=== PATIENT | male | born 1945 | race Caucasian/White ===

== ENCOUNTER 2017-12-14 08:37 | Inpatient (IN) ==
--- NOTE | 2017-12-13 21:41 | Discharge Summary ---
<Natacha Daly E - Last Filed: 12/13/17 21:39> Date of Encounter: 12/13/17 - Discharge Diagnosis (1) Status post total hip replacement, right Priority: Primary Status: Acute (2) Arthritis of right hip Priority: Primary Status: Chronic (3) HTN (hypertension) Priority: Secondary Status: Chronic Qualifiers: Hypertension type: unspecified Qualified Code(s): I10 - Essential (primary ) hypertension (4) HLD (hyperlipidemia) Priority: Secondary Status: Chronic Qualifiers: Hyperlipidemia type: unspecified Qualified Code(s): E78.5 - Hyperlipidemia , unspecified (5) FRANK (obstructive sleep apnea) Priority: Secondary Status: Chronic (6) Obesity Priority: Secondary Status: Chronic Qualifiers: Obesity type: unspecified obesity type Obesity classification: unspecified obesity classification Serious obesity comorbidity presence: unspecified whether serious comorbidity present Qualified Code(s): E66.9 - Obesity, unspecified - Hospital Course Hospital course: Mr. Martinez is a 72 year old male - Time Spent with Patient Total time spent providing and/or coordinating discharge services: - Discharge Medications Home Medications: Aspirin Enteric Coated [Aspirin EC] 325 mg PO BID 10 Days #20 tab 12/13/17 [Rx] OxyCODONE Immed Rel [Roxicodone 5 MG] 5 mg PO Q6HR PRN 7 Days #28 tablet [Rx] Ascorbic Acid [Vitamin C] 100 mg PO DAILY 12/14/17 [History] Cetirizine HCl [All Day Allergy] 10 mg PO DAILY 12/14/17 [History] Gabapentin [Neurontin] 600 mg PO TID 12/14/17 [History] Lovastatin [Mevacor] 20 mg PO HS 12/14/17 [History] Metoprolol Tartrate 50 mg PO BID 12/14/17 [History] Mv,Ca,Fe,Min/FA/Guarana/Caff [One Daily Tablet] 1 tab PO DAILY 12/14/17 [History ] Vitamin E 100 unit PO DAILY 12/14/17 [History] hydroCHLOROthiazide [Hydrochlorothiazide] 25 mg PO DAILY 12/14/17 [History] Allergies/Adverse Reactions: 3 Allergy/AdvReac Type Severity Reaction Status Date / Time No Known Allergies Allergy Verified 11/20/17 14:20 Primary care physician: Ab Hoffman MD - Patient Status Disposition: Home, Self-Care Condition: Good - Discharge Instructions Follow Up With: Ab Hoffman MD [Primary Care Provider] - <Gee Aldrich - Last Filed: 12/15/17 06:43> Orders not resulted at time of discharge: Pending orders 12/14/17 01:00 XR hip complete RT [XR] Routine Hemoglobin and Hematocrit [HEME] Routine Date of Encounter: 12/15/17 Time of Encounter: 06:42 - Discharge Diagnosis (1) Obesity (BMI 30.0-34.9) Priority: Secondary Status: Chronic (2) Arthritis of right hip Priority: Primary Status: Chronic (3) HTN (hypertension) Priority: Secondary Status: Chronic Qualifiers: Hypertension type: unspecified Qualified Code(s): I10 - Essential (primary ) hypertension (4) HLD (hyperlipidemia) Priority: Secondary Status: Chronic Qualifiers: Hyperlipidemia type: unspecified Qualified Code(s): E78.5 - Hyperlipidemia , unspecified (5) Status post total hip replacement, right Priority: Primary Status: Acute (6) FRANK (obstructive sleep apnea) Priority: Secondary Status: Chronic (7) Acute blood loss anemia Priority: Primary Status: Acute - Hospital Course Hospital course: Mr. Martinez is a 72 year old male Status post right total hip replacement The patient had an uneventful postoperative course. They received antibiotics and physical therapy and were discharged in stable condition. There will follow -up in the office in 2 weeks. - Time Spent with Patient Total time spent providing and/or coordinating discharge services: Primary care physician: Ab Hoffman MD - Patient Status Functional capacity at discharge: uses cane/walker Overall status at discharge: patient is progressing back to baseline
[2017-12-14] MEDS ORDERED: Acetaminophen IV 1,000 MG/100 ML INFUS..BTL IVPB ONE (08:49)
[2017-12-14] MEDS ORDERED: CeFAZolin Syr 2,000MG/20 ML 2,000 MG/20 ML SYRINGE IVPB ONE (08:51)
--- NOTE | 2017-12-14 08:52 | Anesthesia Evaluation PreOp ---
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 History: Other (low back pain, protrusion of lumbosacral disc, lumbar canal stenosis) Other Medical History: Denies Any Significant HX Anesthesia History: No Prior Anesthetic Complications, Past Anesthesia (L shoulder, L knee scope, R shoulder scope, sinus) Alcohol Use: none Drug use: none Medications and Allergies Aspirin Enteric Coated [Aspirin EC] 325 mg PO BID 10 Days #20 tab 12/13/17 [Rx] OxyCODONE Immed Rel [Roxicodone 5 MG] 5 mg PO Q6HR PRN 7 Days #28 tablet [Rx] 3 Allergy/AdvReac Type Severity Reaction Status Date / Time No Known Allergies Allergy Verified 11/20/17 14:20 - Meds/Allergy Pre-op Review Medications Reviewed: Yes Allergies Reviewed: Yes Beta Blockers on Current Med List: Yes If Beta Blockers taken, Date/Time (Last Dose taken): 7am 12/14/17 Anesthesia Results - Labs Laboratory Tests 08/03/17 11/20/17 11/20/17 08:12 14:25 14:25 WBC 7.7 Hgb 14.6 Hct 42.8 Plt Count 242 PT 10.7 INR 1.0 APTT 29.0 Sodium Potassium Chloride Carbon Dioxide BUN Creatinine Glucose 94 11/20/17 14:25 WBC Hgb Hct Plt Count PT INR APTT Sodium 137 Potassium 3.7 Chloride 101 Carbon Dioxide 27 BUN 14 Creatinine 0.93 Glucose - Imaging EKG: report reviewed ( Interpretive Statements SINUS RHYTHM RIGHT BUNDLE BRANCH BLOCK LEFT ANTERIOR FASCICULAR BLOCK Electronically Signed On 11-23-2017 16:31: 22 EDT by Sean Evans MD) Anesthesia Exam Weight: 188lbs - HEENT Pupil (Motor): Pupils equal, EOMI Mallampati: III Teeth: Normal Oral Opening: Greater than 3 - METAL ORGAN PIPE MAKER LOC: Oriented METAL ORGAN PIPE MAKER Motor: Normal RUE, Normal LUE, Normal RLE, Normal LLE, Normal Face METAL ORGAN PIPE MAKER Sensory: Normal: RUE, LUE, RLE, LLE, Face - Cardiac Rhythm: Regular - Pulmonary Breath Sounds: bilateral Clear Respiratory Effort: Symmetrical Anesthesia Assess/Plan ASA Score: 2 Modified Emily Scale for Level of Consciousness: Cooperative, oriented, and tranquil Anesthetic Plan: General Monitoring Plan: Standard Monitors Recovery Plan: PACU
--- NOTE | 2017-12-14 08:54 | History & Physical Report ---
Date of Encounter: 12/14/17 Time of Encounter: 08:54 24 Hour HP Update - Instructions Instructions: If the History and Physical is less than 30 days old and was completed prior to A.M. admission and or procedure and has NOT been updated on calendar day of procedure please complete this update prior to performing procedure. - Update Patient reports changes in Medical Condition: No Changes in examination, assessment, or condition: No Changes in Medication: No Preop tests/diagnostics Reviewed: Yes Surgery Remains Indicated: Yes Consent for Planned Operative Procedure(s) Verified: Yes - Pre-Operative Checklist Preoperative Checklist Indicated: No Prophylactic Antibiotic Ordered: Yes Is VTE Prophylaxis Indicated?: Yes
[2017-12-14] MEDS ORDERED: Ringers Solution, Lactated 1,000 ML IVC SCH ×2 (09:00→13:12)
[2017-12-14] MEDS ORDERED: Ethanol\\Acetic Acid\\Na Ace\\Ben 1,000 ML IRRIG.SOLN IR ONE (10:16)
[2017-12-14] MEDS ORDERED: ROPIVACAINE HCL/PF 0.5% 30 ML VIAL ONE (10:43)
[2017-12-14] MEDS ORDERED: Bupivacaine/Clonidine Syringe 1 EACH SYRINGE ONE (10:44)
[2017-12-14] MEDS ORDERED: Ondansetron 4 MG/2 ML VIAL ONE (11:42)
[2017-12-14] MEDS ORDERED: Dexamethasone 4 MG/ML VIAL ONE (11:42)
[2017-12-14] MEDS ORDERED: *HR* Propofol 200 MG/20 ML VIAL IVP ONE (11:42)
[2017-12-14] MEDS ORDERED: *HR* FentaNYL (PF) 100 MCG/2 ML VIAL ONE ×2 (11:42→12:18)
[2017-12-14] MEDS ORDERED: *HR* Midazolam HCl 2 MG/2 ML VIAL ONE (11:42)
[2017-12-14] MEDS ORDERED: *HR* Succinylcholine 200 MG/10 ML VIAL IVP ONE ×2 (11:42)
[2017-12-14] MEDS ORDERED: Lidocaine -MPF 2% 2 ML VIAL ONE (11:42)
[2017-12-14] MEDS ORDERED: *HR* Midazolam HCl 2 MG/2 ML VIAL IVP PRN (11:56)
[2017-12-14] MEDS ORDERED: Ondansetron 4 MG/2 ML VIAL IVP PRN ×2 (11:56→13:12)
[2017-12-14] MEDS ORDERED: *HR* OxyCODONE Immed Rel 5 MG TABLET PO PRN ×2 (11:56→13:12)
--- NOTE | 2017-12-14 11:57 | Orthopedic Operative Note ---
Date of procedure: 12/14/17 Pre-op diagnosis: Right hip arthritis Post-op diagnosis: same Procedure: Procedure: Right Total Hip Replacment robotic-assisted Estimated blood loss: 300 cc Hardware: Metal and polyethylene replacement. Donora DM Cup: 60 cup Femoral size 8stem Head: 12 head with Elayne Procedural Notes: Grade 4 arthritic changes femoral head acetabular socket, operative leg 1 mm shorter as measured by CT scan procedure performed with robotic assistance. Operative procedure: The patient was brought to the operating room and placed on the operating room table. After general anesthesia was administered the patient was placed in the lateral decubitus position with the operative leg up. All pressure points were padded appropriately and the head was stabilized in the neutral position. The operative extremity was prepped and draped in the sterile surgical fashion patient received IV antibiotic prior to skin incision. 3 Steinmann pins were placed in the iliac crest 3 cm proximal to the anterior superior iliac spine this was for the robotic-assisted sensor. This was done through a small 2 cm incision. A standard posterior approach is made to the operative hip, the incision was made through the skin and subcutaneous tissue hemostasis was obtained with Bovie cautery. Using careful sharp dissection the fascia was identified and incised exposing the external rotators. The femoral checkpoint was placed leg length was measured at this time utilizing robotic assistance. The external rotators were released off the greater trochanter and tagged with # 2 FiberWire suture. The capsule was T'd open and the hip was brought into internal rotation. Patient noted to have grade 4 arthritic changes femoral head. The femoral neck cut was made at the appropriate level roughly 15 mm proximal to the lesser trochanter aced on preoperative templating. An anterior capsulotomy was performed for the anterior retractor. Soft tissues removed from the acetabulum. Patient noted to have grade 4 arthritic changes acetabulum. The acetabulum checkpoint was placed confirmed. The acetabulum was then mapped with robotic assistance. Based on the preoperative plan the acetabulum was reamed in one step with a 59 reamer. The 60 acetabulum was impacted with robotic assistance and 40 degrees of abduction and 11 degrees of anteversion. The hip was brought back in to internal rotation and prepared with the juke box mechanic followed by the canal finder followed by the reaming process to a size 7/ 8 broaching process in 20 degrees anteversion. It was broached up to the appropriate size 8. Trial reduction revealed leg lengths close to normal. The femoral implant was impacted in place in 20 degrees of anteversion. Trial reduction found the hip to be stable with 12 head and Elayne. The trials were removed and the real implants were impacted in place. The hip was reduced, patient had robotic confirmed leg length of 15 mm longer than the contralateral side. The hip had excellent stability with forward flexion to 90 degrees adduction of 30 degrees and internal rotation of 60 degrees. The hip had no shuck. The hips after 2 minutes with a antibacterial solution. It was irrigated out with 2 L of pulse irrigation. The checkpoints were removed, Steinmann pins were removed. The hip was closed by the PA. The deep tissue was irrigated and closed deep with #1 PDS suture superficially with 0 PDS suture and skin was closed with Dermabond and zip tie. The patient was placed in a sterile dressing and abduction pillow. The patient was extubated and transferred to the recovery room in stable condition. Anesthesia: NIC Surgeon: Gee Aldrich Was there an print shop assistant present: No Estimated blood loss (cc): 300 Condition: stable Disposition: PACU
[2017-12-14] MEDS ORDERED: Ketorolac 30 MG/ML VIAL ONE (12:01)
[2017-12-14] MEDS: MORPHINE SUL Oral CONC 10 MG/0.5 ML ORAL.SYG SL PRN ×2 (12:35→12:45)
--- NOTE | 2017-12-14 13:10 | Anesthesia Evaluation Post Op ---
Date of Encounter: 12/14/17 Time of Encounter: 13:09 - Vital Signs Vital Signs: Vital Signs/O2 Sat, Most Current Temp Pulse Resp BP Pulse Ox 97.5 F L 66 16 122/91 97 12/14/17 12:52 12/14/17 12:52 12/14/17 12:52 12/14/17 12:52 12/14/17 12:52 - Lungs Lungs: Clear Ascult./Percussion - Airway Airway: Non-obstructed - Cardiovascular Regular Rate - Mental Status Mental Status: Alert & Oriented, Answers Appropriately - Pain Pain Scale: 6 Pain Scale used: Numeric (1 - 10) - Nausea Vomiting Nausea Vomiting: Not Present - Hydration Hydration: Ice chips, Has not voided - Discharge PostOp Status: Transfer Patient to floor
[2017-12-14] MEDS ORDERED: MOM Conc 10 ML UD.LIQ PO PRN (13:12)
[2017-12-14] MEDS ORDERED: Sennosides 8.6 MG TABLET PO PRN (13:12)
[2017-12-14] MEDS ORDERED: Naloxone 0.4 MG/ML INJ IVP PRN (13:12)
[2017-12-14] MEDS ORDERED: Temazepam 15 MG CAPSULE PO PRN (13:12)
[2017-12-14] MEDS ORDERED: traMADol 50 MG TABLET PO PRN (13:12)
[2017-12-14 13:32] LABS: Hematocrit 36.7 % (37.5-50.1); Hemoglobin 12.6 g/dL (12.9-16.9)
[2017-12-14] MEDS ORDERED: *HR* Enoxaparin 30 MG/0.3 ML SYRINGE SQ SCH (18:00)
[2017-12-14] MEDS: Multivit/Ca/Min/Fe/FA 1 TAB TABLET PO SCH (18:14)
[2017-12-14] MEDS: Ascorbic Acid 500 MG TABLET PO SCH (18:17)
[2017-12-14] MEDS: Gabapentin 300 MG CAPSULE PO SCH ×2 (18:17→19:39)
[2017-12-14] MEDS: *HR* Enoxaparin 30 MG/0.3 ML SYRINGE SQ SCH (18:17)
[2017-12-14] MEDS: ceFAZolin 2,000 MG in D5% in Water 100 ML IVPB SCH (21:52)
[2017-12-15] MEDS: ceFAZolin 2,000 MG in D5% in Water 100 ML IVPB SCH (06:16)
[2017-12-15] MEDS: *HR* Enoxaparin 30 MG/0.3 ML SYRINGE SQ SCH ×2 (06:18→17:18)
[2017-12-15 06:20] LABS: Hematocrit 28.9 % (37.5-50.1)
[2017-12-15 06:29] LABS: Hemoglobin 9.9 g/dL (12.9-16.9)
[2017-12-15 06:38] LABS: BUN/Creatinine Ratio 16 (6-26); Blood Urea Nitrogen 14 mg/dL (8-23); Calcium 8.4 mg/dL (8.6-10.3); Carbon Dioxide 27 mEq/L (23-29); Chloride 104 mEq/L (98-107); Glucose 118 mg/dL (70-105); Osmolality,Calculated 284 (280-300); Potassium 3.9 mEq/L (3.5-5.1); Sodium 136 mEq/L (136-145); eGFR For African Americans > 60 (> 60); eGFR For Non-African Americans > 60 (> 60)
--- NOTE | 2017-12-15 06:44 | Orthopedics Progress Note ---
Date of Encounter: 12/15/17 Time of Encounter: 06:43 - Assessment and Plan (1) Obesity (BMI 30.0-34.9) Current Visit: Yes Status: Chronic (2) Arthritis of right hip Current Visit: No Status: Chronic (3) HTN (hypertension) Current Visit: No Status: Chronic Qualifiers: Hypertension type: unspecified Qualified Code(s): I10 - Essential (primary ) hypertension (4) HLD (hyperlipidemia) Current Visit: No Status: Chronic Qualifiers: Hyperlipidemia type: unspecified Qualified Code(s): E78.5 - Hyperlipidemia , unspecified (5) Status post total hip replacement, right Current Visit: No Status: Acute (6) FRANK (obstructive sleep apnea) Current Visit: No Status: Chronic (7) Acute blood loss anemia Current Visit: Yes Status: Acute Subjective Interval history: Patient was seen this morning doing well without complaints. Afebrile vital signs stable. Operative extremity: Neurovascularly intact Dressing clean dry and intact Calves nontender Assessment and plan: Continue with postoperative care Hemoglobin 9.9 discharged today Objective Vital signs: Vital Signs Temp Pulse Resp BP Pulse Ox 12/15/17 03:24 98.9 F 81 17 129/73 98 12/14/17 23:15 98.7 F 96 17 148/74 94 12/14/17 18:51 98.5 F 95 16 135/80 96 12/14/17 15:45 97.8 F 71 16 123/73 94 12/14/17 15:35 97.8 F 49 16 78/50 95 12/14/17 13:17 94 12/14/17 13:15 98.3 F 70 16 149/81 96 12/14/17 13:02 97.5 F L 65 16 113/81 98 12/14/17 12:52 97.5 F L 66 16 122/91 97 12/14/17 12:42 68 16 132/84 96 12/14/17 12:32 64 16 133/63 100 12/14/17 12:22 97.3 F L 56 14 135/84 98 12/14/17 09:02 98.1 F 67 18 154/86 97 12/14/17 08:57 98.1 F 67 18 154/86 97 Intake and Output 12/14/17 12/14/17 12/15/17 15:59 23:59 07:59 Intake Total 100 / 100 Output Total 300 / 300 Balance -300 / -300 100 / 100 Intake: IV Fluids 100 / 100 Ancef 2,000 MG In Dextrose 5% 100 / 100 100 ML @ 200 mls/hr IVPB Q8H AGUSTÍN Rx#:[id number] Output: Estimated Blood Loss 300 / 300 Other: # Voids 1 Weight 85.275 kg 105.4 kg Patient Weight 12/15/17 23:59 Weight 105.4 kg - Labs CBC & BMP: 12/15/17 05:54 12/15/17 05:54 Labs: Abnormal lab results Hgb 9.9 g/dL (12.9-16.9) L D 12/15/17 05:54 Hct 28.9 % (37.5-50.1) L 12/15/17 05:54 Glucose 118 mg/dL (70-105) H 12/15/17 05:54 Calcium 8.4 mg/dL (8.6-10.3) L 12/15/17 05:54 - VTE Documentation of Mechanical Device: Venous foot pump, device Consult Discharge Plan - Plan Referrals: Ab Hoffman MD [Primary Care Provider] -
[2017-12-15] MEDS: Loratadine 10 MG TABLET PO SCH (08:24)
[2017-12-15] MEDS: Gabapentin 300 MG CAPSULE PO SCH ×3 (08:24→20:28)
[2017-12-15] MEDS: Multivit/Ca/Min/Fe/FA 1 TAB TABLET PO SCH (08:25)
[2017-12-15] MEDS: hydroCHLOROthiazide 25 MG TABLET PO SCH (08:25)
[2017-12-15] MEDS: Ascorbic Acid 500 MG TABLET PO SCH ×2 (08:25→17:17)
[2017-12-15] MEDS: (Vitamin E [Vitamin E] 100 UNIT) PO SCH (08:26)
[2017-12-15] MEDS ORDERED: [UNRECOGNIZED DRUG - OTHER] PO SCH (09:00)
[2017-12-15] MEDS ORDERED: ASCORBIC ACID 100 MG PO SCH (09:00)
--- NOTE | 2017-12-15 14:41 | Event Note ---
Date of Encounter: 12/15/17 Time of Encounter: 12:15 PCR- POD#1 R THR robotic 12/14/17 [facility] PCR - Patient seen at bedside. Labwork and medications reviewed. Pain control: Adequate Participating in PT. All questions and concerns addressed. Educated on use of incentive spirometer, ambulation, and hydration. Patient educated on post-operative restrictions and care. Addressed: dizziness - states that he gets lightheaded and feels nauseated when he sits in the chair. States he does not feel safe to go home today. D/C plan: Home tomorrow
[2017-12-15] MEDS: *HR* OxyCODONE/APAP 5/325 TABLET PO PRN ×2 (15:17→21:43)
[2017-12-16] MEDS: *HR* Enoxaparin 30 MG/0.3 ML SYRINGE SQ SCH (05:02)
[2017-12-16 05:22] LABS: Hematocrit 24.9 % (37.5-50.1); Hemoglobin 8.5 g/dL (12.9-16.9)
[2017-12-16 05:40] LABS: BUN/Creatinine Ratio 13 (6-26); Blood Urea Nitrogen 11 mg/dL (8-23); Calcium 8.2 mg/dL (8.6-10.3); Carbon Dioxide 27 mEq/L (23-29); Chloride 100 mEq/L (98-107); Glucose 141 mg/dL (70-105); Osmolality,Calculated 278 (280-300); Potassium 3.2 mEq/L (3.5-5.1); Sodium 133 mEq/L (136-145); eGFR For African Americans > 60 (> 60); eGFR For Non-African Americans > 60 (> 60)
[2017-12-16] MEDS ORDERED: Furosemide 20 MG/2 ML VIAL IVP PRN (07:50)
[2017-12-16] MEDS ORDERED: 0.9 % Sodium Chloride 250 ML IVC SCH (08:00)
--- NOTE | 2017-12-16 08:33 | Orthopedics Progress Note ---
Date of Encounter: 12/16/17 Time of Encounter: 08:33 - Assessment and Plan (1) Obesity (BMI 30.0-34.9) Current Visit: Yes Status: Chronic (2) Arthritis of right hip Current Visit: No Status: Chronic (3) HTN (hypertension) Current Visit: No Status: Chronic Qualifiers: Hypertension type: unspecified Qualified Code(s): I10 - Essential (primary ) hypertension (4) HLD (hyperlipidemia) Current Visit: No Status: Chronic Qualifiers: Hyperlipidemia type: unspecified Qualified Code(s): E78.5 - Hyperlipidemia , unspecified (5) Status post total hip replacement, right Current Visit: No Status: Acute (6) FRANK (obstructive sleep apnea) Current Visit: No Status: Chronic (7) Acute blood loss anemia Current Visit: Yes Status: Acute Subjective Interval history: Patient was seen this morning doing well without complaints. Afebrile vital signs stable. Operative extremity: Neurovascularly intact Dressing clean dry and intact Calves nontender Assessment and plan: Continue with postoperative care Hemoglobin 8.5 transfuse 1 unit of blood then plan to discharge today Objective Vital signs: Vital Signs Temp Pulse Resp BP Pulse Ox 12/16/17 07:49 99.2 F 99 18 139/72 94 12/16/17 04:07 99.5 F 98 18 145/68 95 12/15/17 23:30 99.0 F 82 18 135/67 93 12/15/17 19:04 99.2 F 91 18 142/69 95 12/15/17 16:39 98.9 F 91 16 109/77 94 12/15/17 12:05 98.4 F 84 16 133/68 96 Intake and Output 12/15/17 12/16/17 12/16/17 23:59 07:59 15:59 Output Total 1800 / 1800 300 / 300 Balance -1800 / -1800 -300 / -300 Output: Urine 1800 / 1800 300 / 300 - Labs CBC & BMP: 12/16/17 04:52 12/16/17 04:52 Labs: Abnormal lab results Hgb 8.5 g/dL (12.9-16.9) L 12/16/17 04:52 Hct 24.9 % (37.5-50.1) L 12/16/17 04:52 Sodium 133 mEq/L (136-145) L 12/16/17 04:52 Potassium 3.2 mEq/L (3.5-5.1) L 12/16/17 04:52 Glucose 141 mg/dL (70-105) H 12/16/17 04:52 Calculated Osmolality 278 (280-300) L 12/16/17 04:52 Calcium 8.2 mg/dL (8.6-10.3) L 12/16/17 04:52 - VTE Documentation of Mechanical Device: Venous foot pump, device Consult Discharge Plan - Plan Additional Instructions: Discharge Instructions: Total Hip Replacement Please call [facility] ([phone]), your Primary Care Physician, or report to the Emergency Room if you have any of the following symptoms: Nausea, vomiting, fever greater that 101.5, swelling, chest pain, shortness of breath, increased pain/redness/drainage/odor for your incision site, numbness/ tingling, or any other concerning symptoms. ACTIVITY:Weight-bearing as tolerated for 8 weeks with hip dislocation precautions that physical therapy taught you. You may progress as tolerated under the guidance of your physical therapist. You do not need to sleep with a pillow between your legs. You can also seep on the operative side or on your stomach. MEDICATIONS: Upon discharge resume your home medications. Take all the medications as prescribed. Take a stool softener if taking narcotic pain medications. Stool softeners are only effective if you drink enough fluids. Drink 6-8 glass of water or fluids a day, unless this is not allowed for another health problem. Despite using stool softeners, if you haven't had a bowel movement in 3 days, please switch to a gentle laxative. Gentle laxatives are sold over the counter. You should have a bowel movement within 24 hours, if not call the office. You will be discharged from the hospital with a prescription for pain medication. You are encouraged to decrease the use of narcotic pain medication as tolerated. Should you require a refill, please call the office. [facility] prescribes narcotic pain medication for only 4-6 weeks after surgery. If you require pain medication beyond this time period, you may be referred to your Primary Care Physician or to the Pain Clinic for further evaluation. Plan ahead for refills on pain medication as many narcotics either need to be picked up at the office or mailed. It is best to call 48-72 hours in advance of needing a prescription refill so you don't run out of medication. To help control the post-operative pain, you may take NSAIDs (Aleve,Advil, Motrin, ibuprofen, naprosyn) or Tylenol as prescribed on the bottle in addition to the pain medication. ANTICOAGULATION (blood thinners): Continue your Aspirin, Lovenox or Coumadin as prescribed to help prevent a blood clot in the leg or in the lungs. As long as your incision remains dry and you tolerate the NSAIDs (Aleve, Advil, Motrin, Ibuprofen, Naprosyn), it is OK to use the NSAIDS while you are taking your anticoagulation medication. Should your incision start to drain, stop the NSAID and contact our office. Common symptoms of blood clot in the legs include: localized pain, swelling, calf tenderness, redness or discoloration of the skin. Blood clot in the lung symptoms include: shortness of breath, rapid pulse, sweating, and chest pain that worsens with deep breathing, coughing up blood, lightheadedness, feelings of anxiety. If you experience any of these symptoms notify your physician immediately, go to the emergency room, or if having trouble breathing, call 911. WOUND CARE: Leave the dressing on for 7 to 10days. You may change the dressing if it is saturated greater than 50%. Do not get the dressing wet at anytime. Wash your hands with antibacterial soap, rinse and dry prior to any wound care. If you have santosh the visiting nurse or rehab facility can remove the stapes 10-14 days after surgery and place steri-strips across the wound. Leave the steri-strips in place until they fall off on their own. You may let water from the shower run on top of the steri-strips. If you do not have a visiting nurse or rehab facility, you will need to return to the office at 10-14 days for the santosh to be removed. If you have itching or redness around the dressing call the office. FOLLOW-UP: Please follow up with your surgeon in the orthopedic clinic in 6 weeks from the day of surgery. If you have santosh that need to be removed, you will need to come back to the office in 10-14 days from the day of surgery. Referrals: Gee Aldrich MD [Partnered Physician] - 12/24/17 9:00 am Ab Hoffman MD [Primary Care Provider] -
[2017-12-16] MEDS: Gabapentin 300 MG CAPSULE PO SCH ×2 (08:49→16:41)
[2017-12-16] MEDS: Multivit/Ca/Min/Fe/FA 1 TAB TABLET PO SCH (08:50)
[2017-12-16] MEDS: hydroCHLOROthiazide 25 MG TABLET PO SCH (08:50)
[2017-12-16] MEDS: Ascorbic Acid 500 MG TABLET PO SCH ×2 (08:50→16:41)
[2017-12-16] MEDS: Loratadine 10 MG TABLET PO SCH (08:50)
[2017-12-16] MEDS: (Vitamin E [Vitamin E] 100 UNIT) PO SCH (08:51)
[2017-12-16] MEDS: *HR* OxyCODONE/APAP 5/325 TABLET PO PRN ×2 (10:19→16:41)
[2017-12-16 15:11] VITALS: BP 150/74
[2017-12-16 15:49] LABS: Hematocrit 28.9 % (37.5-50.1); Hemoglobin 9.8 g/dL (12.9-16.9)
[2017-12-16 16:03] LABS: BUN/Creatinine Ratio 13 (6-26); Blood Urea Nitrogen 10 mg/dL (8-23); Calcium 8.5 mg/dL (8.6-10.3); Carbon Dioxide 29 mEq/L (23-29); Chloride 100 mEq/L (98-107); Glucose 141 mg/dL (70-105); Osmolality,Calculated 281 (280-300); Potassium 3.4 mEq/L (3.5-5.1); Sodium 135 mEq/L (136-145); eGFR For African Americans > 60 (> 60); eGFR For Non-African Americans > 60 (> 60)
--- NOTE | 2017-12-16 17:12 | Event Note ---
Date of Encounter: 12/16/17 Time of Encounter: 11:40 PCR- POD#2 R THR robotic 12/14/17 [facility] PCR - Patient seen at bedside. Labwork and medications reviewed. Pain control: Adequate Participating in PT. All questions and concerns addressed. Educated on use of incentive spirometer, ambulation, and hydration. Patient educated on post-operative restrictions and care. Addressed: dizziness - resolved Receiving 1 unit blood today and K+ supplement prior to going home. D/C plan: Home today
== END 2017-12-16 17:43 | disposition home or self-care (01) | DRG 470 ==
LOC: SAMDAY 08:37 → 3NENU 13:49
PROVIDERS: ADMIT Orthopaedic Surgery; ATTEND Orthopaedic Surgery